=== PATIENT | female | born 1965 | race Caucasian/White ===

== ENCOUNTER 2017-10-18 06:10 | Emergency (ER) | payer OTHER ==
[~2017-10-18] VITALS: Ht 165.1 cm; Wt 81.6 kg
[~2017-10-18 06:10] MED LIST: ACET-2605 PO; ASPI-1165 PO
--- NOTE | 2017-10-18 07:32 | NUR ---
Recieved pt in bed, awaiting u/s.
[2017-10-18 08:47] VITALS: BP 113/60
--- NOTE | 2017-10-18 08:50 | NUR ---
Patient discharged to home in stable conditon. Written and verbal after care instructions given. Patient verbalizes understanding of instructions. Pt walked out of ER w/ steady gait accompained by family.
== END 2017-10-18 08:58 | disposition home or self-care (01) ==
LOC: ER 06:13
DX: S93.602A Unspecified sprain of left foot, initial encounter (principal); Z88.5 Allergy status to narcotic agent; Z79.82 Long term (current) use of aspirin; X58.XXXA Exposure to other specified factors, initial encounter; Y93.89 Activity, other specified; Y92.89 Other specified places as the place of occurrence of the external cause; Y99.8 Other external cause status
CPT/HCPCS: 73630; 93971; 99284; A4663

== ENCOUNTER 2019-08-19 13:35 | Outpatient (CLI) | payer OTHER | END 2019-08-19 23:59 | disposition home or self-care (01) | LOC: CT 13:35 | DX: J98.11 Atelectasis (principal) | CPT/HCPCS: 71250 ==